=== PATIENT | male | born 1985 | race Caucasian/White ===

== ENCOUNTER → 2017-06-24 | Outpatient (CLI) | payer OTHER ==
[~2017-06-24] MED LIST: AGM875 PO; PRCUNK PO
--- NOTE | 2017-06-24 11:08 | DIAGNOSTIC IMAGING REPORT ---
R FOOT MIN 3 VIEWS ROUTINE CLINICAL HISTORY: RIGHT FOOT PAIN COMPARISON: None. DISCUSSION: No acute fractures or dislocations are visualized. There are no erosive changes. There is no pathologic periostitis. IMPRESSION: No significant bony abnormalities Electronically signed by: Deo Lowe M.D. 06/24/2017 11:06 AM Dictated Date/Time: 06/24/2017 11:06 AM
== END | disposition home or self-care (01) ==
LOC: C.RADBC 10:27
PROVIDERS: ATTEND Nurse Practitioner
DX: M72.2 Plantar fascial fibromatosis (principal)